=== PATIENT | female | born 1935 | race Caucasian/White ===

== ENCOUNTER → 2017-01-29 | Outpatient (CLI) | payer MEDICARE, OTHER ==
[~2017-01-29] MED LIST: ALEVE220 M1 PO; ATIVAN-DPS1 MG PO; CALTRATE-600 W600 MG PO; FOSAMAX70 MG PO; HYZAAR 100-12.1 EACH PO; METOPROLOL SUCC50 MG PO; PRESERVISION L1 EACH PO
== END | disposition home or self-care (01) ==
LOC: RAD.S 08:14
DX: C56.9 Malignant neoplasm of unspecified ovary (principal); E04.9 Nontoxic goiter, unspecified; R18.8 Other ascites